=== PATIENT | female | born 1960 | race Caucasian/White ===

== ENCOUNTER 2020-12-21 14:35 | Emergency (ER) | payer OTHER ==
[~2020-12-21] VITALS: Ht 165.1 cm; Wt 111.1 kg
[~2020-12-21 14:35] MED LIST: LEVSOD100 PO
[2020-12-21 15:09] LABS: BASOPHILS ABSOLUTE AUTO 0.03 K/mm3 (0.00-0.23); BASOPHILS PERCENT AUTO 0 % (0-2); EOSINOPHILS ABSOLUTE AUTO 0.37 K/mm3 (0.00-0.68); EOSINOPHILS PERCENT AUTO 4 % (0-6); Hemoglobin 14.2 g/dL (11.5-16.0); IMMATURE GRAN ABSOLUTE AUTO 0.03 K/mm3 (0.00-0.10); IMMATURE GRAN PERCENT AUTO 0 % (0-1); LYMPHOCYTES ABSOLUTE AUTO 2.15 K/mm3 (0.84-5.20); LYMPHOCYTES PERCENT AUTO 22 % (21-46); MONOCYTES ABSOLUTE AUTO 0.93 K/mm3 (0.16-1.47); MONOCYTES PERCENT AUTO 10 % (4-13); Mean Corpuscular HGB 29.3 pg (26.0-34.0); Mean Corpuscular HGB Conc 33.8 g/dL (31.5-36.5); Mean Corpuscular Volume 87 fL (80-100); NEUTROPHILS ABSOLUTE AUTO 6.24 K/mm3 (1.96-9.15); NEUTROPHILS PERCENT AUTO 64 % (41-73); Platelet Count 202 K/mm3 (150-400); RDW Coefficient Variation 14.6 % (11.7-14.2); RDW Standard Deviation 46.4 fL (35.1-46.3); Red Blood Cell Count 4.85 M/mm3 (3.80-5.20); White Blood Cell Count 9.75 K/mm3 (4.00-11.30)
[2020-12-21 15:27] LABS: Troponin I <0.015 ng/mL (0.000-0.040)
[2020-12-21 15:28] LABS: Alanine Aminotransfer (ALT/SGP 28 U/L (12-78); Albumin, Blood 3.9 g/dL (3.4-5.0); Albumin/Globulin Ratio 0.9 (0.8-1.8); Alk Phos 63 U/L (50-136); Anion Gap 8 mmol/L (6-16); Aspartate Aminotrans (AST/SGOT 20 U/L (12-37); Bilirubin, Total 0.7 mg/dL (0.1-1.0); Blood Urea Nitrogen 10 mg/dL (8-24); Bun/Creatinine Ratio 13.6 (12.0-20.0); CO2, Blood 24 mmol/L (21-32); Calcium, Blood 9.2 mg/dL (8.5-10.1); Chloride, Blood 106 mmol/L (98-108); Creatinine, Blood 0.73 mg/dL (0.40-1.00); Globulin, Blood 4.3 g/dL (2.2-4.0); Glomerular Filtration Rate >60 (60-); Glucose, Blood 151 mg/dL (70-99); Sodium, Blood 138 mmol/L (136-145); Total Protein, Blood 8.2 g/dL (6.4-8.2)
[2020-12-21] MEDS ORDERED: XARELTO15 MG PO (16:23)
== END 2020-12-21 16:49 | disposition home or self-care (01) ==
LOC: ER 14:35
PROVIDERS: Physician Assistant
DX: I82.402 Acute embolism and thrombosis of unspecified deep veins of left lower extremity (principal); I82.812 Embolism and thrombosis of superficial veins of left lower extremity; E27.8 Other specified disorders of adrenal gland; E03.9 Hypothyroidism, unspecified; Z79.890 Hormone replacement therapy; Z88.5 Allergy status to narcotic agent; Z88.7 Allergy status to serum and vaccine; Z87.891 Personal history of nicotine dependence
CPT/HCPCS: 36415; 71260; 80053; 83690; 83880; 84484; 85025; 93005; 93010; 99284-25; A9270; Q9967

== ENCOUNTER 2021-01-09 06:56 | Day surgery (SDC) | payer OTHER ==
[~2021-01-09] VITALS: Ht 165.1 cm; Wt 112.0 kg
[~2021-01-09 06:56] MED LIST changes: +XARELTO15 MG PO
[2021-01-09] MEDS ORDERED: HYDR1TAB94 PO (08:12)
[2021-01-09] MEDS ORDERED: XARELTO20 MG PO (08:12)
[2021-01-09] MEDS ORDERED: MULVITA PO (08:13)
[2021-01-09] MEDS ORDERED: FISH OIL 1,0001 EAC8 PO (08:13)
--- NOTE | 2021-01-09 12:15 | NUR ---
PT TO RECOVERY ROOM POST PROCEDURE. PT IS AWAKE, BUT VERY TEARFUL REPORTS DISCOMFORT AT L GROIN POST PROCEDURE, /, CRAMPY IN CHARACTER. DR REYNAGA AWARE OF PT'S DISCOMFORT. MONITOR SR 80'S, B/P 141/81, AFEBRILE, SPO2 100% RA. L POPLITEAL SITE NO SWELLING/HEMATOMA, TEGADERM DRSG INTACT.
--- NOTE | 2021-01-09 12:25 | NUR ---
DR REYNAGA AT THE BEDSIDE TO EVALUATE PT, OK'D PT TO TAKE HOME NORCO 5/325MG.
--- NOTE | 2021-01-09 12:35 | NUR ---
PT MORE CALM AND CONVERSING; REPORT GIVEN TO FRANCISCO MERCEDES.
[2021-01-09] MEDS ORDERED: Aspir 8181 MG PO (12:59)
--- NOTE | 2021-01-09 14:21 | NUR ---
PATIENT IS UP TO THE RESTROOM AT 1315 AND VOIDED. PATIENT WALKING TENDERLY AND STILL HAVING PAIN. BACK TO BED AND LUNCH TRAY SERVED. FEEDING SELF.
--- NOTE | 2021-01-09 14:22 | NUR ---
REVIEWED DISCHARGE INSTRUCTIONS AND ALL QUESTIONS ANSWERED. VVS. PIV REMOVED AND PRESSURE DRESSING APPLIED TO THE LEFT AC. CATHETER TIP INTACT. SPOKE AT LENGTH WITH PATIENT REGARDING PROCEDURE AND MEDICATION LIST. ALL QUESTIONS ANSWERED. PATIENT CALLED AND HE IS ON HIS WAY. PATIENT BECAME LESS ANXIOUS DURING CARE AND IS NOW TALKING AND IN LESS PAIN. SHE IS READY FOR DISCHARGE HOME WITH FOLLOW UP IN THE OFFICE WITH DR. REYNAGA.
== END 2021-01-09 15:22 | disposition home or self-care (01) ==
LOC: MHTC 06:56
DX: I82.412 Acute embolism and thrombosis of left femoral vein (principal); I87.1 Compression of vein; E03.9 Hypothyroidism, unspecified; Z87.891 Personal history of nicotine dependence; Z88.5 Allergy status to narcotic agent
CPT/HCPCS: 76937; 85347; 99152; 99153; A9270; C1725; C1757; C1769; C1876; C1887; C1894; J1644; J2250; J2997; J3010; J7030; J7050; Q9967